=== PATIENT | male | born 2000 | race Caucasian/White ===

== ENCOUNTER 2023-05-24 23:48 | Emergency (ER) | payer SELFPAY ==
[2023-05-24 23:51] VITALS: BP 158/86; PULSE 70; RESP 16; TEMP 36.4; O2SAT 99
--- NOTE | 2023-05-24 23:52 | ED.GENADUL_ITS ---
HPI General Mode of arrival: ambulatory . Date/Time Provider Initiated Documentation: 05/24/23 23:52 . Limitations to Documentation: no limitations . Information obtained by: patient . HPI Narrative: Patient presents to ED with right-sided low back pain status post slip and fall on ice couple of times today. Patient had the wind knocked out of him but denies any head strike or loss of consciousness. Denies any midline spinal pain. Denies any gross hematuria. Denies any rib pain or difficulty breathing. Pain worse with movement especially raising his right arm above his head. De nies any abdominal pain. Has not taken anything [id number] for the pain. Related Data Allergies Allergy/AdvReac Type Severity Reaction Status Date / Time No Known Allergies Allergy Unverified 05/24/23 23:57 Review of Systems Narrative: Per HPI [facility] Medical History Wears glasses Surgical History Repair, Dental Caries (05/06/04) Family History Mother Thyroid disorder Father Retinitis pigmentosa Essential hypertension Other Retinitis pigmentosa PGF and other paternal Substance abuse maternal/paternal Diabetes MGM, PGM Alcohol abuse maternal/paternal Essential hypertension paternal and maternal Personal history of malignant neoplasm maternal side Heart disease paternal, maternal side in 50's Hyperlipidemia PGF Mental disorder paternal-anxiety/depression Myocardial infarction maternal/paternal side, PGGF Stroke PGF and other paternal Sister Asthma Social History Smoking risk assessment performed?: No Do you feel safe at home: Yes Do you feel safe in your relationship?: Yes Exam Narrative Exam Narrative: Const: WDWN male in NAD. HEENT: NC/AT. Normal facial exam. Neck: Supple. Trachea midline. No posterior midline cervical spine tend erness. Lungs: Normal respiratory effort. Lungs are clear. No chest wall tenderness. Cor: RRR without murmur/gallop. Good radial pulses. Back: No TLS spinal tenderness. Neuro: A+O x 3. Normal speech, mentation, gait. Cranial nerves II - XII grossly intact. No gross motor or sensory deficit. Ext: No C/C/E. Normal range of motion without deformity or tenderness. Skin: Warm and dry without laceration. Medical Decision Making Patient presenting to ED with right side low back pain status post fall. He is neurologically intact. He did not strike his head and did not have loss of consciousness. He has no spinal tenderness. He has no rib tenderness. Lungs are clear. He has had no gross hematuria. His exam is reassuring and given lack of spinal tenderness, neurologic change, loss of consciousness, rib pain or shortness of breath he currently does not require imaging or laboratory studies. Recommend ice on and off for the next couple of days before switching over to heat, massage, stretching. Alternate acetaminophen with ibuprofen for pain. Follow-up with primary care next week. Return precautions provided. Quality:[facility] Health Related Social Needs: No Data to Display Discharge Plan Disposition Patient Disposition: Home Condition: Good Discharge Details Clinical Impression: Contusion of back Primary Care Provider: Unknown,Unknown ED Provider: Reynaldo Jaquez Discharge Instructions Instructions: Contusion in Adults (ED) Additional Instructions: You should use ibuprofen alternating with acetaminophen for any pain or discomfort. Ice the area on and off for the next couple of days before switching over to heat, gentle massage, stretching. Follow-up with primary care next week if you are not improving. Return to ED for any difficulty breathing, blood in your urine, neurologic change.
== END 2023-05-25 00:07 | disposition home or self-care (01) ==
LOC: ER 05-25 00:32
PROVIDERS: Emergency Provider Emergency Medicine
DX: S20.224A Contusion of middle back wall of thorax, initial encounter (principal); W00.0XXA Fall on same level due to ice and snow, initial encounter; Y93.01 Activity, walking, marching and hiking

== ENCOUNTER 2023-10-30 09:49 | Emergency (ER) | payer OTHER, SELFPAY ==
[2023-10-30 09:56] VITALS: BP 136/94; PULSE 54; RESP 16; O2SAT 99
--- NOTE | 2023-10-30 10:00 | DI.RAD_ITS ---
Exam(s) XR KNEE RT 3V AP,LAT,RONNIE EXAM: XR KNEE RT 3V AP,LAT,RONNIE CLINICAL HISTORY: R knee pain. TECHNIQUE: 2D digital imaging was performed of the right knee. Three views obtained. AP, lateral an d PA tunnel views were obtained. COMPARISON: No exams were available for comparison FINDINGS: BONES: No acute fracture is present. No bony destructive lesion is seen. JOINTS: The knee is normally aligned. No joint effusion is seen. SOFT TISSUE: Normal. IMPRESSION: No acute fracture is identified. The joint spaces are well maintained. DATA REPOSITORY: RADIATION DOSE DELIVERED:
--- NOTE | 2023-10-30 10:03 | ED.GENADUL_ITS ---
Discharge Plan Disposition Patient Disposition: Home Condition: Stable Discharge Details Clinical Impression: Internal derangement of right knee Primary Care Provider: None,None ED Provider: Antonio Ferrer Discharge Instructions Instructions: Internal Derangement of the Knee Additional Instructions: You were seen in the emergency department for your right knee injury while at work. There is no significant fracture, you may have an injury to the meniscus or ligament of the knee, please remain in the knee immobilizer, weight-bear as tolerated, you declined crutches at today's visit. Please follow-up with orthopedics for any persistent severe pain or instability past 1 week. Please use therapeutic dosing of Tylenol (acetamenophen) & Advil (ibuprofen) in an alternating fashion as follows: Take 1000mg of Tylenol every 6 hours without missing doses- that is 4 times per day. [place] in between the Tylenol dosings, take 400-600mg of Advil also on a 6 hour schedule, that is also 4 times per day. The daily maximum dosing of Tylenol is 4000mg, and the daily maximum dosing of Advil is 2400mg. This is safe to do for weeks. Please note that some common cold medications & prescription pain medications may contain acetamenophen and you need to read OTC drug labels and factor that in to maximum daily dosings. Please return to the emergency department for inability to weight-bear whatsoever, complete numbness of the leg, severe increase in pain and complete numbness distal to the knee. Referrals: [facility] [Provider Group] Discharge Data Discharge Date/Time-TO BE ENTERED AT DEPARTURE: 10/30/23 12:55 HPI General Date/Time Provider Initiated Documentation: 10/30/23 10:02 . HPI Narrative: 22 year-old male presents to ED today by POV/ambulating with antalgic gait with a chief complaint of R knee pain and instability- patient was lowering himself down 6 from hanging on a bar, and dropped to ground with something happening inside his knee- feels unstable with certain movements now with onset just prior to arrival. Quality described as painful unstable R knee, R-foot dominant, no radiation to numbness, skin changes, gross swelling, deformity, medial thigh tenderness, inability to flex/extend the knee. Severity is described as severe. Palliating factors include nothing attempted. Provoking factors include nothing specific. Patient not anticoagulated. Related Data Allergies Allergy/AdvReac Type Severity Reaction Status Date / Time No Known Allergies Allergy Unverified 05/24/23 23:57 General Stated Complaint: Orthopedic FROY: 4 Review of Systems All systems reviewed & are unremarkable except as noted in HPI and below Exam Narrative Exam Narrative: GENERAL APPEARANCE: Well-nourished, non-toxic, awake and alert, atraumatic, no acute distress. SKIN: Warm, pink, dry, intact, without rashes/lesions/ulcerations. HEAD: Normocephalic, atraumatic, normal hair distribution for gender/age. EYES: Pupils PERRLA, EOMs intact without nystagmus, normal conjunctiva, no exudates on lids/lashes. ENT: Nares patent, no circumoral cyanosis, no facial swelling NECK: Supple, trachea midline, painless cervical ROM. LUNGS/CHEST: Lungs CTA bilaterally, non-labored respirations, normal A/P diame ter, symmetrical expansion, no chest wall deformity HEART (CV/PV): Regular rate and rhythm without murmur, no peripheral edema, no JVD. ABDOMEN: Soft, non-distended, no guarding. MSK: Normal ROM, no swelling/deformity to bilateral UEs or LEs, moving all extremities without weakness, no cyanosis, spine midline without tenderness, normal curvature. NEURO: Mental Status AAOx4 - alert to person, place, time, events No facial droop, no forehead involvement. Motor: No focal weakness - strength 5/5 in bilateral UEs and LEs, proximal and distal, symmetric. Sensory: sensation intact to light touch globally. Gait normal: patient ambulated without ataxia into ED room. PSYCH: euthymic, cooperative, pleasant, appropriate speech Course Vital Signs Vital signs: Vital Signs Pulse 54 L 10/30/23 09:56 Respiratory Rate 16 10/30/23 09:56 Blood Pressure 136/94 H 10/30/23 09:56 Pulse Oximetry 99 10/30/23 09:56 Pulse 54 L 10/30/23 09:56 Respiratory Rate 16 10/30/23 09:56 Blood Pressure 136/94 H 10/30/23 09:56 Blood Pressure Position Sitting 10/30/23 09:56 Pulse Oximetry 99 10/30/23 09:56 Oxygen Delivery Method Room Air 10/30/23 09:56 Oxygen Flow Rate 0 06/24/24 09:56 Medical Decision Making This dictation utilizes [id number] dictation software and may contain unedited grammatical errors. 22 year-old male presents to ED today by POV/ambulating with antalgic gait with a chief complaint of R knee pain and instability- patient was lowering himself down 6 from hanging on a bar, and dropped to ground with something happening inside his knee- feels unstable with certain movements now with onset just prior to arrival. Quality described as painful unstable R knee, R-foot dominant, no radiation to numbness, skin changes, gross swelling, deformity, medial thigh tenderness, inability to flex/extend the knee. Severity is described as severe. Palliating factors include nothing attempted. Provoking factors include nothing specific. Patients' medical history: noncontributory. Family and social history: noncontributory- workplace injury. Pertinent exam findings / vital signs include right knee tenderness without crepitus, able to flex and extend, mild joint line tenderness, no ligamentous laxity with varus valgus forces, [place] positive. Differential / pathologies of concern include fracture, sprain or strain, meniscus injury. Diagnostic studies of: -XR R knee -no acute fracture or effusion. Interventions of: -Provided knee immobilizer offered crutches and patient declined. ED Course/Assessment/Plan: 22-year-old male suffered a minor impact to right knee with instability felt now, question whether he has a right lateral meniscus injury versus possible partial ACL tear, there is no fracture or large effusion seen on x-ray, he is able to ambulate but did have exaggerated response of trying to get up to demonstrate his pain and flailing wildly and nearly falling down. I counseled him on therapeutic dosing of Tylenol and ibuprofen, provided a knee immobilizer and offered crutches but he declined, I recommend that he follow-up with orthopedics for ligamentous injury evaluation. Strict return criteria for any signs of neurovascular compromise distal to the injury. Findings not consistent with fracture, NV compromise. Disposition of Internal Derangement of Right Knee. Patient verbalized understanding of the plan and return to ED criteria and engaged in shared decision making. Medical Records Medical records reviewed: Yes I reviewed the patient's medical records. Imaging Data Radiologic Study: Attestation: I personally reviewed and interpreted this imaging study as follows: Imaging: X-Ray Radiologist's impression: EXAM: XR KNEE RT 3V AP,LAT,RONNIE CLINICAL HISTORY: R knee pain. TECHNIQUE: 2D digital imaging was performed of the right knee. Three views obtained. AP, lateral and PA tunnel views were obtained. COMPARISON: No exams were available for comparison FINDINGS: BONES: No acute fracture is present. No bony destructive lesion is seen. JOINTS: The knee is normally aligned. No joint effusion is seen. SOFT TISSUE: Normal. IMPRESSION: No acute fracture is identified. The joint spaces are well maintained. Quality:SDOH Health Related Social Needs: No Data to Display PFSH All Active Problems (Updated 10/30/23 @ 12:46 by JAMMIE Hanson) Internal derangement of right knee (Acute) Medical History Wears glasses Surgical History Repair, Dental Caries (05/06/04) Family History Mother Thyroid disorder Father Retinitis pigmentosa Essential hypertension Other Retinitis pigmentosa PGF and other paternal Substance abuse maternal/paternal Diabetes MGM, PGM Alcohol abuse maternal/paternal Essential hypertension paternal and maternal Personal history of malignant neoplasm maternal side Heart disease paternal, maternal side in 50's Hyperlipidemia PGF Mental disorder paternal-anxiety/depression Myocardial infarction maternal/paternal side, PGGF Stroke PGF and other paternal Sister Asthma Social History Smoking/Tobacco Use Status: Current every day Smoking risk assessment performed?: Yes Alcohol Intake: current Alcohol Intake frequency: 0-2 drinks per day Alcohol type: beer Drug use: Never Substance use type: does not use Housing: house Do you feel safe at home: Yes Do you feel safe in your relationship?: Yes
[2023-10-30] MEDS: Ketorolac 10 MG TAB PO (10:33)
[2023-10-30] MEDS: Acetaminophen 500 MG TAB 1000 MG PO (10:33)
[2023-10-30 12:55] VITALS: BP 150/88; PULSE 60; RESP 16; O2SAT 99
--- NOTE | 2023-10-30 14:08 | NUR.NOTE ---
Accessed Pt chart to locate diagnosis to document on the [facility] paperwork.
== END 2023-10-30 12:55 | disposition home or self-care (01) ==
PROVIDERS: Emergency Provider Physician Assistant
DX: M23.91 Unspecified internal derangement of right knee (principal)
CPT/HCPCS: 73562; 99283